=== PATIENT | female | born 1930 | race Two or more races ===

== ENCOUNTER → 2018-07-23 | Emergency (ER) | payer OTHER ==
[~2018-07-23] VITALS: Ht 157.5 cm; Wt 45.4 kg
[~2018-07-23] MED LIST: ASPIR 8181 MG; ATIVAN0.5 MG; FORTAMET500 MG; SIMVASTATIN20 MG; SYNTHROID50 MCG; TEMAZEPAM15 MG; TOPROL XL25 MG; [UNRECOGNIZED DRUG - OTHER]
== END | disposition home or self-care (01) ==
LOC: ER 16:17
DX: R06.02 Shortness of breath (principal); E86.0 Dehydration; N39.0 Urinary tract infection, site not specified